=== PATIENT | male | born 1970 | race Caucasian/White ===

== ENCOUNTER → 2022-12-13 17:26 | Outpatient (CLI) | payer BC, SELFPAY ==
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
== END ==
PROVIDERS: Referring Provider Physician Assistant; Visit Provider Physician Assistant
DX: M25.552 Pain in left hip (principal); M16.12 Unilateral primary osteoarthritis, left hip
CPT/HCPCS: 73502